=== PATIENT | male | born 1980 | race Caucasian/White ===

== ENCOUNTER 2017-10-10 07:41 | Day surgery (SDC) | payer BC ==
[~2017-10-10] VITALS: Ht 182.9 cm; Wt 97.5 kg
[~2017-10-10 07:41] MED LIST: FLONASE ALLERG9.9 ML BOTH NARES; MEN'S MULTI-VI1 EACH PO; TYLENOL EXTRA500 MG PO
[2017-10-10 08:17] VITALS: BP 144/86
[2017-10-10] MEDS ORDERED: NORCO 5/3251 TABLET PO (11:43)
[2017-10-10] MEDS ORDERED: MOTRIN600 MG PO (11:43)
[2017-10-10 12:00] VITALS: BP 142/94
[2017-10-10 12:38] VITALS: BP 134/76
== END 2017-10-10 12:45 | disposition home or self-care (01) ==
LOC: SDC 07:41
PROC: 0YU60JZ Supplement Left Inguinal Region with Synthetic Substitute, Open Approach (ICD-10-PCS; principal; 2017-10-10)
DX: K40.90 Unilateral inguinal hernia, without obstruction or gangrene, not specified as recurrent (principal)
CPT/HCPCS: C1781; J0131; J0690; J2250; J2405; J3010; S0020